=== PATIENT | female | born 1990 | race Caucasian/White ===

== ENCOUNTER 2017-06-11 17:59 | Emergency (ER) | payer OTHER ==
[2017-06-11 18:18] LABS: BILIRUBIN,URINE NEGATIVE (NEGATIVE); GLUCOSE, URINE (UA) NEGATIVE (NEGATIVE); KETONES,URINE (UA) NEGATIVE (NEGATIVE); LEUKOCYTE ESTERASE, URINE NEGATIVE (NEGATIVE); NITRITE,URINE NEGATIVE (NEGATIVE); OCCULT BLOOD,URINE SMALL (NEGATIVE); PH,URINE 6.5 PH (5.0-7.5); PROTEIN,URINE NEGATIVE (NEGATIVE); UROBILINOGEN,URINE 0.2 (NORMAL) E.U./dL (NORMAL)
[2017-06-11 18:22] LABS: CLARITY,URINE HAZY (CLEAR)
--- NOTE | 2017-06-11 18:22 | ED Physician Documentation ---
PD HPI ABD PAIN - Stated complaint Stated Complaint: FEMALE /9WKS - Chief complaint Chief Complaint: Abd Pain - History obtained from History obtained from: Patient - History of Present Illness Timing - onset: Other (G1 at approximately 9 weeks presents with slight vaginal bleeding today without cramping.) Review of Systems Ten Systems: 10 systems reviewed and negative Constitutional: reports: Reviewed and negative Throat: reports: Reviewed and negative Cardiac: reports: Reviewed and negative PD PAST MEDICAL HISTORY - Past Medical History Past Medical History: No - Past Surgical History Past Surgical History: No - Present Medications Home Medications: Ambulatory Orders Medication Instructions Recorded Confirmed No Known Home Medications [No 06/11/17 06/11/17 Known Home Medications] - Allergies Allergies/Adverse Reactions: Allergies Allergy/AdvReac Type Severity Reaction Status Date / Time No Known Drug Allergies Allergy Verified 06/11/17 18:03 - Social History Does the pt smoke?: No Smoking Status: Never smoker Does the pt drink ETOH?: No Does the pt have substance abuse?: No - Immunizations Immunizations are current?: No PD ED PE NORMAL - Vitals Vital signs reviewed: Yes - General General: Alert and oriented X 3, No acute distress - Abdomen Abdomen: Normal bowel sounds, Soft, Non tender - Female Female : Other (Pelvic ultrasound done by me demonstrates empty uterus, I do not see an IUP.) - Neuro Neuro: Alert and oriented X 3, Normal speech - Psych Psych: Normal mood, Normal affect Results - Vitals Vitals: Vital Signs - 24 hr 06/11/17 18:02 Temperature 35.0 C L Heart Rate 88 Respiratory 18 Rate Blood Pressure 103/66 O2 Saturation 98 Oxygen O2 Source Room air - Labs Labs: Laboratory Tests 06/11/17 06/11/17 06/11/17 18:09 18:21 18:21 WBC RBC Hgb Hct MCV MCH MCHC RDW Plt Count MPV Neut # Lymph # [place] # Eos # Baso # Absolute Nucleated RBC Nucleated RBC % Sodium Potassium Chloride Carbon Dioxide Anion Gap BUN Creatinine Estimated GFR (MDRD) Glucose Calcium HCG, Quant 61277.00 Urine Color YELLOW Urine Clarity HAZY Urine pH 6.5 Ur Specific [place] 1.020 Urine Protein NEGATIVE Urine Glucose (UA) NEGATIVE Urine Ketones NEGATIVE Urine Occult Blood SMALL H Urine Nitrite NEGATIVE Urine Bilirubin NEGATIVE Urine Urobilinogen 0.2 (NORMAL) Ur Leukocyte Esterase NEGATIVE Urine RBC 0-5 Urine WBC 0-3 Ur Squamous Epith Cells FEW Squamous Amorphous Sediment Marked Urine Bacteria Many H Ur Microscopic Review INDICATED Urine Culture Comments INDICATED Blood Type O POSITIVE 06/11/17 06/11/17 18:21 18:21 WBC 7.9 RBC 4.34 Hgb 13.1 Hct 36.8 L MCV 84.7 MCH 30.1 MCHC 35.6 RDW 12.5 Plt Count 251 MPV 8.4 Neut # 5.3 Lymph # 1.8 [place] # 0.7 Eos # 0.0 Baso # 0.0 Absolute Nucleated RBC 0.00 Nucleated RBC % 0.1 Sodium 136 Potassium 3.4 L Chloride 101 Carbon Dioxide 31 Anion Gap 4.0 L BUN 9 Creatinine 0.5 Estimated GFR (MDRD) 150 Glucose 89 Calcium 8.9 HCG, Quant Urine Color Urine Clarity Urine pH Ur Specific [place] Urine Protein Urine Glucose (UA) Urine Ketones Urine Occult Blood Urine Nitrite Urine Bilirubin Urine Urobilinogen Ur Leukocyte Esterase Urine RBC Urine WBC Ur Squamous Epith Cells Amorphous Sediment Urine Bacteria Ur Microscopic Review Urine Culture Comments Blood Type - Rads (name of study) Pelvic sono Radiology: EMP read contemporaneously (Empty uterus intrauterine gestational sac measuring 7 weeks 2 days by sac size, differential diagnosis includes blighted ovum, anembryonic or molar .) PD MEDICAL DECISION MAKING - ED course ED course: 26-year-old G1 presents with spotting in , I did not see an ultrasound defined IUP on bedside ultrasound and this was followed with a formal ultrasound showing similar findings despite a beta-hCG which should clearly be showing us a at this point. Patient was counseled and she will need to have follow-up beta hCG in the clinic in a few days. Case discussed in person with Dr. Rosales on-call OB who agreed with this plan. Departure - Departure Disposition: Home, Self Care Clinical Impression: Threatened in early Condition: Good Record reviewed to determine appropriate education?: Yes Instructions: ED Miscarriage Poss Comments: [place] call them tomorrow for an appointment. Let them know that your blood type was O+ and that your serum beta hCG was [id number]. Your ultrasound showed: "Empty uterus intrauterine gestational sac measuring 7 weeks 2 days by sac size , differential diagnosis includes blighted ovum, anembryonic or molar . .Return if worse
[2017-06-11 18:33] LABS: BASOPHILS % (AUTO) 0.6 %; EOSINOPHILS % (AUTO) 0.5 %; HGB - HEMOGLOBIN 13.1 g/dL (12.0-16.0); LYMPHOCYTES # (AUTO) 1.8 10^3/uL (1.5-3.5); LYMPHOCYTES % (AUTO) 23.2 %; MEAN CORPUSCULAR HEMOGLOBIN 30.1 pg (27.0-31.0); MEAN CORPUSCULAR HGB CONC 35.6 g/dL (32.0-36.0); MEAN CORPUSCULAR VOLUME 84.7 fL (81.0-99.0); MEAN PLATELET VOLUME 8.4 fL (7.9-10.8); MONOCYTES # (AUTO) 0.7 10^3/uL (0.0-1.0); MONOCYTES % (AUTO) 8.9 %; NEUTROPHILS # (AUTO) 5.3 10^3/uL (1.5-6.6); NEUTROPHILS % (AUTO) 66.8 %; PLT - PLATELET COUNT 251 10^3/uL (130-450); RED BLOOD COUNT 4.34 10^6/uL (4.20-5.40); RED CELL DISTRIBUTION WIDTH 12.5 % (12.0-15.0); WHITE BLOOD COUNT 7.9 x10^3/uL (4.8-10.8)
[2017-06-11 18:35] LABS: AMORPHOUS SEDIMENT,UR Marked /LPF; BACTERIA,URINE Many /HPF (None Seen); RBC,URINE 0-5 /HPF (0-5); SQUAMOUS EPITHELIAL CELL,UR FEW Squamous (<= Few)
[2017-06-11 18:39] LABS: CALCIUM 8.9 mg/dL (8.5-10.3); CREATININE 0.5 mg/dL (0.4-1.0)
--- NOTE | 2017-06-11 20:21 | Ultrasound Preliminary Report ---
Exam: US OB FIRST TRIMESTER IMPRESSION: 1. Empty intrauterine gestational sac with gestational age 7 weeks 2 days by gestational sac size. Di fferential diagnosis includes blighted ovum, an embryonic , or molar . Concomitant ectopic is not excluded 2. Fundal uterine mass, question intramural fibroid measuring 4.3 cm.. [facility] SITE ID: [id number]
--- NOTE | 2017-06-11 20:21 | Ultrasound Report ---
EXAM: FIRST TRIMESTER OBSTETRIC ULTRASOUND (Less than 11 weeks) EXAM DATE: 06/11/2017 07:49 PM. CLINICAL HISTORY: VB . LMP: 04/11/2017. COMPARISONS: None. TECHNIQUE: Transabdominal and transvaginal ultrasound examination with static image documentation. CLINICAL DATES: EGA 8 weeks 5 days with ARABELLA 01/16/2018 based on LMP. ASSESSMENT: Gestational Sac: Single intrauterine. Mean gestational sac diameter: 23 mm = 7 weeks 2 days. Embryo: CRL (crown-rump length) not seen. Cardiac activity: Not seen. Yolk sac: Not seen. Amniotic fluid: Not accurately assessed at this gestational age. Early placenta: Not visible at this gestational age. Other: There is a small amount of perigestational fluid.. MATERNAL STRUCTURES: Uterus: Anteverted. There is a fundal intramural mass measuring 3.7 x 4.3 x 3.6 cm, probable fibroid. . Cervix: Closed. Right Ovary/Adnexa: There is a corpus luteum versus cyst measuring 1.4 x 1.1 x 1.6 cm.. The ovary me asures 2.9 x 2.1 x 2.8 cm, volume 9.2 cc. Left Ovary/Adnexa: Unremarkable. The ovary measures 2.6 x 1.3 x 2.1 cm, volume 3.6 cc. Free Fluid: None. Other: None. IMPRESSION: 1. Empty intrauterine gestational sac with gestational age 7 weeks 2 days by gestational sac size. Di fferential diagnosis includes blighted ovum, an embryonic , or molar . Concomitant ectopic is not excluded 2. Fundal uterine mass, question intramural fibroid measuring 4.3 cm.. [facility] Referring Provider Line: [phone] SITE ID: [id number]
[2017-06-11 21:23] VITALS: BP 122/71
== END 2017-06-11 21:23 | disposition home or self-care (01) ==
LOC: ED 17:59
DX: O20.0 Threatened abortion (principal); Z3A.09 9 weeks gestation of pregnancy
CPT/HCPCS: 36415; 76801; 76817; 80048; 81001; 81003; 84702; 85025; 86900; 86901; 87086; 99283

== ENCOUNTER 2017-06-27 03:09 | Emergency (ER) | payer OTHER ==
--- NOTE | 2017-06-27 03:34 | ED Physician Documentation ---
PD HPI FEMALE - Stated complaint Stated Complaint: FEMALE - History obtained from History obtained from: Patient - History of Present Illness Timing - onset: Today Timing - details: Now resolved Associated symptoms: Pelvic pain, Vaginal bleeding Similar symptoms before: Work up / diagnostics, Treatment Recently seen: Clinic, Emergency Dept - Additional information Additional information: Patient is a 26 year old female who is presenting to the emergency department for abdominal cramping, vaginal bleeding and passing tissue. patient states that over the last 3 weeks she has had some spotting. patient was diagnosed with having and empty yoke sac and patient states that her beta hcg became smaller. patient states that tonight she passed a large amount of tissue and has filled 4 pads in the last hour. Review of Systems Constitutional: denies: Fever, Chills Eyes: reports: Reviewed and negative Ears: reports: Reviewed and negative Nose: reports: Reviewed and negative Throat: reports: Reviewed and negative Cardiac: denies: Chest pain / pressure, Palpitations Respiratory: denies: Dyspnea, Cough GI: reports: Nausea, Vomiting : reports: Vaginal bleeding. denies: Dysuria, Frequency Musculoskeletal: denies: Neck pain, Back pain, Extremity pain Neurologic: denies: Generalized weakness, Focal weakness Immunocompromised: denies: Immunocompromised PD PAST MEDICAL HISTORY - Past Surgical History Past Surgical History: No - Present Medications Home Medications: Ambulatory Orders Medication Instructions Recorded Confirmed No Known Home Medications [No 06/11/17 06/11/17 Known Home Medications] - Allergies Allergies/Adverse Reactions: Allergies Allergy/AdvReac Type Severity Reaction Status Date / Time No Known Drug Allergies Allergy Verified 06/27/17 03:24 - Social History Does the pt smoke?: No Smoking Status: Never smoker Does the pt drink ETOH?: No Does the pt have substance abuse?: No - Immunizations Immunizations are current?: No PD ED PE NORMAL - General General: Alert and oriented X 3, No acute distress - HEENT HEENT: Atraumatic, PERRL - Neck Neck: Supple, no meningeal sign - Cardiac Cardiac: RRR, No murmur - Respiratory Respiratory: No respiratory distress - Abdomen Abdomen: Soft, Non distended - Derm Derm: Normal color, Warm and dry, No rash - Extremities Extremities: No deformity, No edema - Neuro Neuro: Alert and oriented X 3, No motor deficit, No sensory deficit, Normal speech - Psych Psych: Normal mood PD ED PE EXPANDED - Abdomen Abdomen: Tender to palpation, Suprapubic Results - Vitals Vitals: Vital Signs - 24 hr 06/27/17 03:20 Temperature 36.2 C L Heart Rate 85 Respiratory 17 Rate Blood Pressure 119/65 O2 Saturation 100 Oxygen O2 Source Room air - Labs Labs: Laboratory Tests 06/27/17 06/27/17 06/27/17 03:40 03:40 03:40 WBC 9.5 RBC 4.22 Hgb 12.4 Hct 36.4 L MCV 86.2 MCH 29.4 MCHC 34.1 RDW 12.4 Plt Count 230 MPV 8.0 Neut # 6.8 H Lymph # 1.8 [place] # 0.7 Eos # 0.1 Baso # 0.1 Absolute Nucleated RBC 0.00 Nucleated RBC % 0.0 Sodium 138 Potassium 3.9 Chloride 105 Carbon Dioxide 25 Anion Gap 8.0 BUN 18 Creatinine 0.7 Estimated GFR (MDRD) 102 Glucose 110 H Calcium 9.0 HCG, Quant 3704.00 - Rads (name of study) pelvic ultrasound Radiology: Final report received (no vascularity, unlikely retained products of conception) PD MEDICAL DECISION MAKING - ED course Complexity details: reviewed old records, reviewed results, re-evaluated patient , considered differential, d/w patient ED course: Patient was seen and examined at bedside. patient was awake, alert and oriented and in no distress. labs were drawn and imaging was ordered. Patient had brought in the tissue she passed and it looked like placenta. Patient's vital signs and h/h were within normal limits. Patient's ultrasound did not look like retained products of conception. Patient was given detailed discharge and follow up instructions. patient required no further work up and was stable for discharge with outpatient follow up. Departure - Departure Disposition: Home, Self Care Clinical Impression: Miscarriage Condition: Good Instructions: ED Miscarriage Completed Follow-Up: primary,care provider [Other] - Within 3 Days Comments: Your symptoms today were caused by passing tissue from your . You will likely still bleed over the next few days but it should stop. Your beta hcg levels are decreasing appropriately. You should follow up with your ob this week for further evaluation and care. You may return to the emergency department at any time for new, worsening or uncontrollable symptoms.
[2017-06-27] MEDS ORDERED: ONDANSETRON ODT 4 MG TABLET TL STA (03:36)
[2017-06-27 03:55] LABS: BASOPHILS # (AUTO) 0.1 10^3/uL (0.0-0.1); BASOPHILS % (AUTO) 0.6 %; EOSINOPHILS # (AUTO) 0.1 10^3/uL (0.0-0.7); EOSINOPHILS % (AUTO) 0.8 %; HGB - HEMOGLOBIN 12.4 g/dL (12.0-16.0); LYMPHOCYTES # (AUTO) 1.8 10^3/uL (1.5-3.5); LYMPHOCYTES % (AUTO) 19.2 %; MEAN CORPUSCULAR HEMOGLOBIN 29.4 pg (27.0-31.0); MEAN CORPUSCULAR HGB CONC 34.1 g/dL (32.0-36.0); MEAN CORPUSCULAR VOLUME 86.2 fL (81.0-99.0); MONOCYTES # (AUTO) 0.7 10^3/uL (0.0-1.0); MONOCYTES % (AUTO) 7.6 %; NEUTROPHILS # (AUTO) 6.8 10^3/uL (1.5-6.6); NEUTROPHILS % (AUTO) 71.8 %; PLT - PLATELET COUNT 230 10^3/uL (130-450); RED BLOOD COUNT 4.22 10^6/uL (4.20-5.40); RED CELL DISTRIBUTION WIDTH 12.4 % (12.0-15.0); WHITE BLOOD COUNT 9.5 x10^3/uL (4.8-10.8)
[2017-06-27 04:01] LABS: CREATININE 0.7 mg/dL (0.4-1.0)
--- NOTE | 2017-06-27 05:16 | Ultrasound Report ---
EXAM: PELVIC ULTRASOUND EXAM DATE: 06/27/2017 04:57 AM. CLINICAL HISTORY: Miscarriage, passing tissue. COMPARISON: None. TECHNIQUE: Realtime transabdominal pelvic scan performed to identify the uterus and adnexa and as an overview of other pelvic structures, followed by transvaginal scan to provide greater detail of the u terus and adnexa, with static image documentation. FINDINGS: LMP: 04/11/2017 Uterus: Uterus is normal in position and normal in configuration. Uterus measures 9.0 x 5.6 x 4.4 cm . No evident uterine masses. Endometrium: Heterogeneous thickened endometrial stripe complex measuring 21 mm. No definite internal vascularity. Cervix: No suspicious lesion. Right Ovary: Normal in appearance measuring 3.1 x 2.2 x 2.0 cm. Normal blood flow. Left Ovary: Normal in appearance measuring 2.8 x 1.8 x 1.3 cm. Normal blood flow. Fluid: No signficant free fluid. Other: No other significant findings. IMPRESSION: Heterogeneous thickened endometrial stripe complex without increased vascularity. As a result, retain ed products of conception are felt to be less likely. This may be due to blood products within the en dometrial canal. [facility] Referring Provider Line: [phone] SITE ID: [id number]
[2017-06-27 05:35] VITALS: BP 120/64
== END 2017-06-27 05:43 | disposition home or self-care (01) ==
LOC: ED 03:09
DX: O03.9 Complete or unspecified spontaneous abortion without complication (principal)
CPT/HCPCS: 36415; 76830; 76856; 80048; 84702; 85025; 99283; 99284; Q0162; 88305

== ENCOUNTER 2018-03-31 00:02 | Emergency (ER) | payer OTHER ==
--- NOTE | 2018-03-31 00:15 | ED Physician Documentation ---
PD HPI ABD PAIN - Stated complaint Stated Complaint: ABDOMINAL PAIN,18W - History obtained from History obtained from: Patient - History of Present Illness Timing - onset: How many days ago (2-3) Timing - duration: Days (2-3) Timing - details: Gradual onset, Still present Quality: Cramping, Aching, Pain Location: Periumbilical, LLQ Radiation: Left flank Improved by: Laying still Worsened by: Moving. No: Palpation Associated symptoms: Fever (today), Nausea, Vomiting (earlier today, several times), Dysuria, Loss of appetite. No: Diarrhea, Chest pain, Near syncope / syncope Similar symptoms before: Has not had sx before Recently seen: Not recently seen Review of Systems Constitutional: reports: Fever (today) Nose: denies: Rhinorrhea / runny nose, Congestion Throat: denies: Sore throat Respiratory: denies: Cough GI: reports: Abdominal Pain, Nausea, Vomiting. denies: Diarrhea : reports: Dysuria. denies: Frequency PD PAST MEDICAL HISTORY - Past Medical History Cardiovascular: None Respiratory: None Neuro: None Endocrine/Autoimmune: None [employer]: Miscarriage(s) : Frequency - Past Surgical History Past Surgical History: No - Present Medications Home Medications: Ambulatory Orders Medication Instructions Recorded Confirmed Cephalexin [Keflex] 500 mg PO QID #24 capsule 03/31/18 Naproxen 375 mg PO BID #15 tablet 03/31/18 Ondansetron Odt [Zofran] 4 mg TL Q6H PRN #15 tablet 03/31/18 - Allergies Allergies/Adverse Reactions: Allergies Allergy/AdvReac Type Severity Reaction Status Date / Time No Known Drug Allergies Allergy Verified 03/31/18 00:18 - Social History Does the pt smoke?: No Smoking Status: Never smoker Does the pt drink ETOH?: No Does the pt have substance abuse?: No - Immunizations Immunizations are current?: No PD ED PE NORMAL - Vitals Vital signs reviewed: Yes (tachycardic with fever) - General General: Alert and oriented X 3, Well developed/nourished - HEENT HEENT: Moist mucous membranes, Pharynx benign - Neck Neck: Supple, no meningeal sign, No adenopathy - Cardiac Cardiac: No murmur. No: RRR (tachy but regular) - Respiratory Respiratory: Clear bilaterally - Abdomen Abdomen: Normal bowel sounds, Soft, Non tender, Non distended, Other (gravid with fundus just below umbilicus. Bedside U/S showing normal IUP with heart rate and movement. Left kidney U/S showing normal size. ) Results - Vitals Vitals: Vital Signs - 24 hr 03/31/18 03/31/18 03/31/18 00:16 00:22 00:23 Temperature 39.1 C H Heart Rate 149 H 130 H Respiratory 18 17 Rate Blood Pressure 108/61 111/61 O2 Saturation 96 96 03/31/18 03/31/18 01:59 02:32 Temperature Heart Rate 100 100 Respiratory 16 16 Rate Blood Pressure 110/54 L 98/54 L O2 Saturation 99 96 Oxygen O2 Source Room air - Labs Labs: Laboratory Tests 03/31/18 03/31/18 03/31/18 00:10 01:10 01:10 WBC 14.4 H RBC 3.28 L Hgb 10.0 L Hct 27.9 L MCV 85.0 MCH 30.5 MCHC 35.9 RDW 13.7 Plt Count 195 MPV 8.3 Neut # (Auto) 12.9 H Lymph # (Auto) 0.3 L [place] # (Auto) 1.2 H Eos # (Auto) 0.0 Baso # (Auto) 0.0 Absolute Nucleated RBC 0.00 Nucleated RBC % 0.0 Sodium 130 L Potassium 2.9 L Chloride 101 Carbon Dioxide 20 L Anion Gap 9.0 BUN 7 Creatinine 0.5 Estimated GFR (MDRD) 149 Glucose 115 H Calcium 8.3 L Total Bilirubin 0.9 AST 20 ALT 14 Alkaline Phosphatase 41 L Total Protein 6.1 L Albumin 2.9 L Globulin 3.2 Albumin/Globulin Ratio 0.9 L Lipase 33 Urine Color YELLOW Urine Clarity CLEAR Urine pH 6.0 Ur Specific [place] 1.025 Urine Protein TRACE Urine Glucose (UA) 100 H Urine Ketones NEGATIVE Urine Occult Blood TRACE-LYSE Urine Nitrite POSITIVE H Urine Bilirubin NEGATIVE Urine Urobilinogen 0.2 (NORMAL) Ur Leukocyte Esterase SMALL H Urine RBC 0-5 Urine WBC >25 H Ur Squamous Epith Cells RARE Squamous Urine Bacteria Moderate H Ur Microscopic Review INDICATED Urine Culture Comments INDICATED PD MEDICAL DECISION MAKING - ED course Complexity details: re-evaluated patient (she is feeling better with fluids and meds. Vitals are improved. ), considered differential, d/w patient Departure - Departure Disposition: 01 Home, Self Care Clinical Impression: UTI (urinary tract infection) Qualifiers: Urinary tract infection type: acute pyelonephritis Qualified Code(s): N10 - Acute pyelonephritis Qualifiers: Weeks of gestation: 18 weeks Qualified Code(s): Z3A.18 - 18 weeks gestation of Condition: Stable Record reviewed to determine appropriate education?: Yes Instructions: ED Kidney Infec Female Prescriptions: Cephalexin [Keflex] 500 mg PO QID #24 capsule Naproxen 375 mg PO BID #15 tablet Ondansetron Odt [Zofran] 4 mg TL Q6H PRN #15 tablet PRN Reason: Nausea / Vomiting Comments: You do have a urinary tract infection and it sounds like in the kidney given your symptoms. Drink lots of fluids. Naproxen twice daily for a week for inflammation and pain. Ondansetron if needed for nausea. Cephalexin antibiotic for the infection. Add Tylenol every 4-6 hours if needed for pain and fever. Recheck if not improving over the next 2-3 days and return sooner if worse. Follow-up with your [facility] early next week, call for an appointment. Discharge Date/Time: 03/31/18 02:35
[2018-03-31 00:23] LABS: BILIRUBIN,URINE NEGATIVE (NEGATIVE); GLUCOSE, URINE (UA) 100 mg/dL (NEGATIVE); KETONES,URINE (UA) NEGATIVE (NEGATIVE); LEUKOCYTE ESTERASE, URINE SMALL (NEGATIVE); NITRITE,URINE POSITIVE (NEGATIVE); OCCULT BLOOD,URINE TRACE-LYSE (NEGATIVE); PROTEIN,URINE TRACE mg/dL (NEGATIVE); UROBILINOGEN,URINE 0.2 (NORMAL) E.U./dL (NORMAL)
[2018-03-31 00:24] LABS: CLARITY,URINE CLEAR (CLEAR)
[2018-03-31 00:35] LABS: BACTERIA,URINE Moderate /HPF (None Seen); RBC,URINE 0-5 /HPF (0-5); SQUAMOUS EPITHELIAL CELL,UR RARE Squamous (<= Few)
[2018-03-31] MEDS ORDERED: ONDANSETRON 4 MG/2 ML VIAL IVP STA (00:42)
[2018-03-31] MEDS ORDERED: SODIUM CHLORIDE 0.9% 1,000 ML IV ONE (00:42)
[2018-03-31] MEDS ORDERED: cefTRIAXone 1 GM VIAL IVP STA (00:43)
[2018-03-31] MEDS ORDERED: KETOROLAC 15 MG/ML VIAL IVP STA (00:43)
[2018-03-31 01:54] LABS: BASOPHILS % (AUTO) 0.1 %; LYMPHOCYTES # (AUTO) 0.3 10^3/uL (1.5-3.5); LYMPHOCYTES % (AUTO) 2.1 %; MEAN CORPUSCULAR HEMOGLOBIN 30.5 pg (27.0-31.0); MEAN CORPUSCULAR HGB CONC 35.9 g/dL (32.0-36.0); MEAN PLATELET VOLUME 8.3 fL (7.9-10.8); MONOCYTES # (AUTO) 1.2 10^3/uL (0.0-1.0); MONOCYTES % (AUTO) 8.2 %; NEUTROPHILS # (AUTO) 12.9 10^3/uL (1.5-6.6); NEUTROPHILS % (AUTO) 89.6 %; PLT - PLATELET COUNT 195 10^3/uL (130-450); RED BLOOD COUNT 3.28 10^6/uL (4.20-5.40); RED CELL DISTRIBUTION WIDTH 13.7 % (12.0-15.0); WHITE BLOOD COUNT 14.4 x10^3/uL (4.8-10.8)
[2018-03-31 01:55] LABS: ALBUMIN 2.9 g/dL (3.2-5.5); ALBUMIN/GLOBULIN RATIO 0.9 (1.0-2.2); BILIRUBIN,TOTAL 0.9 mg/dL (0.2-1.0); CALCIUM 8.3 mg/dL (8.5-10.3); CREATININE 0.5 mg/dL (0.4-1.0); TOTAL PROTEIN 6.1 g/dL (6.7-8.2)
[2018-03-31 02:34] VITALS: BP 98/54
== END 2018-03-31 02:35 | disposition home or self-care (01) ==
LOC: ED 00:02
DX: O23.02 Infections of kidney in pregnancy, second trimester (principal); Z3A.18 18 weeks gestation of pregnancy
CPT/HCPCS: 36415; 80053; 81001; 81003; 83690; 85025; 87086; 87181; 96361; 96374; 96375; 99283; 99284

== ENCOUNTER 2020-04-15 00:32 | Outpatient (CLI) | payer OTHER ==
[2020-04-15 01:02] VITALS: BP 108/64
[2020-04-15 01:23] LABS: BILIRUBIN,URINE NEGATIVE (NEGATIVE); GLUCOSE, URINE (UA) NEGATIVE (NEGATIVE); KETONES,URINE (UA) NEGATIVE (NEGATIVE); LEUKOCYTE ESTERASE, URINE NEGATIVE (NEGATIVE); NITRITE,URINE NEGATIVE (NEGATIVE); OCCULT BLOOD,URINE NEGATIVE (NEGATIVE); PROTEIN,URINE NEGATIVE (NEGATIVE); UROBILINOGEN,URINE 0.2 (NORMAL) E.U./dL (NORMAL)
[2020-04-15 01:25] LABS: CLARITY,URINE CLEAR (CLEAR)
[2020-04-15 01:29] LABS: BACTERIA,URINE Rare /HPF (None Seen); RBC,URINE 0-5 /HPF (0-5); SQUAMOUS EPITHELIAL CELL,UR FEW Squamous (<= Few)
== END 2020-04-15 01:45 | disposition home or self-care (01) ==
LOC: WFO 00:32 → FBP 00:34 → WFO 01:45
PROVIDERS: ATTEND Obstetrics & Gynecology
DX: O99.891 Other specified diseases and conditions complicating pregnancy (principal); R10.9 Unspecified abdominal pain; Z3A.00 Weeks of gestation of pregnancy not specified
CPT/HCPCS: 81001; 87086; 99213

== ENCOUNTER 2020-06-11 08:38 | Outpatient (CLI) | payer OTHER | END 2020-06-11 08:39 | disposition home or self-care (01) | LOC: LAB 08:38 | PROVIDERS: ATTEND Obstetrics & Gynecology | DX: O99.810 Abnormal glucose complicating pregnancy (principal) | CPT/HCPCS: 36415; 82951; 82952 ==

== ENCOUNTER 2020-06-23 08:00 | Outpatient (CLI) | payer OTHER | END 2020-06-23 23:59 | disposition home or self-care (01) | LOC: LAB.R 08:00 | PROVIDERS: ATTEND Obstetrics & Gynecology | DX: Z36.85 Encounter for antenatal screening for Streptococcus B (principal) | CPT/HCPCS: 87797 ==

== ENCOUNTER 2020-06-28 07:09 | Outpatient (CLI) | payer OTHER ==
--- NOTE | 2020-06-28 15:01 | Ultrasound Report ---
PROCEDURE: OB F/U or Repeat INDICATIONS: GESTATIONAL DIABETES OUTSIDE/PRIOR DATING DATA: Last menstrual period (LMP): 10/12/2019. LMP-based estimated date of delivery (ARABELLA): 07/18/2020. First dating scan (date and location): 03/04/2020 at [facility]. Estimated date of delivery (ARABELLA) from first dating scan: TECHNIQUE: Real-time scanning was performed of the fetus, with image documentation and biometric measurements. COMPARISON: None. FINDINGS: General: A single living intrauterine gestation is present. Presentation: Cephalic Placenta: Placental position is anterior, without previa. Amniotic fluid index: 17.6 cm, 73.5 for gestational age. heart rate: 123 beats per minute. Maternal cervical canal: 3.2 cm long; normal length is 2.5 cm or more. biometrics: Biparietal diameter: 9.3, 37 weeks 6 days Head circumference: 33.0, 37 weeks 3 days Abdominal circumference: 34.4, 38 weeks 2 days Femur length: 7.0, 35 weeks 6 days Estimated gestational age from initial scan: 37 weeks 1 day Composite gestational age from present scan: 37 weeks 0 days Estimated weight and percentile: 3247, 69% Measurement variability in biometric dating: +/- 10 days from 12-20 weeks gestation, +/- 2 weeks from 20-30 weeks gestation, +/- 3 weeks at 30 weeks gestation or more. Other: CORD Dopplers were noted. There is persistent anterior diastolic flow. The S/D ratios ra nge between 2.22 and 2.31 and resistive indices range between 0.55 and 0.57. Images of the facial profile as well as the kidneys, and diaphragm are within normal limits. IMPRESSION: Single intrauterine in cephalic position with heart rate of 123 bpm. Estimated gestat ional age on today's examination corresponds to 37 weeks 0 days. Estimated weight of 3247g corresponding to the 69th percentile. INES measures 17.6 cm. Umbilical cord Dopplers with S/D ratios between 2.22 and 2.31 and resistive indices between 0.55 and 0.57. Reviewed by: Braxton Soler DO on 06/28/2020 2:00 PM SAM Approved by: Braxton Soler DO on 06/28/2020 2:00 PM [facility] Station ID: [id number]
== END 2020-06-28 07:10 | disposition home or self-care (01) ==
LOC: DI 07:09
PROVIDERS: ATTEND Obstetrics & Gynecology
DX: O24.419 Gestational diabetes mellitus in pregnancy, unspecified control (principal); Z3A.37 37 weeks gestation of pregnancy

== ENCOUNTER 2020-06-28 08:01 | Outpatient (CLI) | payer OTHER ==
[2020-06-28 08:16] VITALS: BP 123/76
--- NOTE | 2020-07-01 13:44 | PROCEDURE REPORT ---
- HPI Diagnosis/Indication for NST: Gestational Diabetes Current EDU 07/18/20 Gestation 37 Weeks and 1 Days 3 Para 1 Vital Signs Temperature 97.7 F 06/28/20 08:13 Heart Rate 79 06/28/20 08:13 Respiratory Rate 17 06/28/20 08:13 Blood Pressure 123/76 06/28/20 08:13 O2 Saturation 100 06/28/20 08:13 Temperature 97.7 F 06/28/20 08:13 Heart Rate 79 06/28/20 08:13 Respiratory Rate 17 06/28/20 08:13 Blood Pressure 123/76 06/28/20 08:13 O2 Saturation 100 06/28/20 08:13 - NST Procedure NST Procedure Start Date 06/28/20 Start Time 08:12 Stop Time 08:48 Vibroacoustic Stimulation Used No Patient States Movement Yes EFM 115 mod nishi 15x15 accels no decels TOCO: q7 min, mild - Results and Plan Findings/Impression: 29 yo at 37+1 wga and GDM here for NST Cat I tracing Cont with twice weekyl NST and weekly INES DX: Gestational diabetes
== END 2020-06-28 08:55 | disposition home or self-care (01) ==
LOC: WFO 08:01 → FBP 08:07 → WFO 08:55
PROVIDERS: ATTEND Obstetrics & Gynecology
DX: O24.419 Gestational diabetes mellitus in pregnancy, unspecified control (principal); Z3A.37 37 weeks gestation of pregnancy
CPT/HCPCS: 59025

== ENCOUNTER 2020-07-01 07:26 | Outpatient (CLI) | payer OTHER ==
--- NOTE | 2020-07-01 13:37 | Ultrasound Report ---
PROCEDURE: OB Limited INDICATIONS: GESTATIONAL DIABETES OUTSIDE/PRIOR DATING DATA: Last menstrual period (LMP): 10/12/2019. LMP-based estimated date of delivery (ARABELLA): 07/18/2020. First dating scan (date and location): OB ultrasound 03/04/20. Estimated date of delivery (ARABELLA) from first dating scan: 07/18/2020. It is noted ARABELLA given by provider is 07/18/2020.. TECHNIQUE: Real-time scanning was performed of the fetus, with image documentation. COMPARISON: OB ultrasound 06/28/2019, 03/04/2020 FINDINGS: A single living intrauterine gestation is present. Presentation: Cephalic Placenta: Placental position is anterior, without previa. Amniotic fluid index: 16.1 cm, 66th percentile for gestational age. 6.6 cm heart rate: 123 beats per minutes. Maternal cervical canal: 3.8 cm long; normal length is 2.5 cm or more. Estimated gestational age from initial scan: 37 weeks 4 days IMPRESSION: 1. Single live intrauterine with INES measuring 66th percentile. Reviewed by: Angi Gonzalez MD on 07/01/2020 1:35 PM PST Approved by: Angi Gonzalez MD on 07/01/2020 1:35 PM PST Station ID: [id number]
== END 2020-07-01 07:27 | disposition home or self-care (01) ==
LOC: DI 07:26
PROVIDERS: ATTEND Obstetrics & Gynecology
DX: O24.419 Gestational diabetes mellitus in pregnancy, unspecified control (principal); Z3A.37 37 weeks gestation of pregnancy

== ENCOUNTER 2020-07-01 07:53 | Outpatient (CLI) | payer OTHER ==
[2020-07-01 08:04] VITALS: BP 109/65
--- NOTE | 2020-07-01 14:10 | PROCEDURE REPORT ---
- HPI Diagnosis/Indication for NST: Gestational Diabetes Current EDU 07/18/20 Gestation 37 Weeks and 4 Days 3 Para 1 Vital Signs Temperature 97.7 F 07/01/20 08:02 Heart Rate 73 07/01/20 08:02 Respiratory Rate 18 07/01/20 08:02 Blood Pressure 109/65 07/01/20 08:02 O2 Saturation 96 07/01/20 08:02 Temperature 97.6 F L 07/01/20 08:47 Heart Rate 74 07/01/20 08:47 Respiratory Rate 16 07/01/20 08:47 Blood Pressure 109/65 07/01/20 08:47 O2 Saturation 100 07/01/20 08:47 - NST Procedure NST Procedure Start Date 07/01/20 Start Time 08:00 Stop Time 08:39 Vibroacoustic Stimulation Used No Patient States Movement Yes EFM 120 mod nishi 15x15 accels no decels TOCO Q5-6 min, mild - Results and Plan Findings/Impression: 29 yo at 37+4 wga with GDM Cat I tracing Cont with twice weekly NST and weekly INES IOL at 39 weeks DX; gestational diabetes
== END 2020-07-01 08:40 | disposition home or self-care (01) ==
LOC: WFO 07:53 → FBP 07:59 → WFO 08:40
PROVIDERS: ATTEND Obstetrics & Gynecology
DX: O24.419 Gestational diabetes mellitus in pregnancy, unspecified control (principal); Z3A.37 37 weeks gestation of pregnancy
CPT/HCPCS: 59025

== ENCOUNTER 2020-07-04 08:06 | Outpatient (CLI) | payer OTHER ==
[2020-07-04 08:25] VITALS: BP 122/73
--- NOTE | 2020-07-04 10:41 | PROCEDURE REPORT ---
- HPI Diagnosis/Indication for NST: Gestational Diabetes Current EDU 07/18/20 Gestation 38 Weeks and 0 Days 2 Para 1 Vital Signs Temperature 36.6 C 07/04/20 08:23 Heart Rate 83 07/04/20 08:23 Respiratory Rate 20 07/04/20 08:23 Blood Pressure 122/73 07/04/20 08:23 O2 Saturation 98 07/04/20 08:23 Temperature 36.6 C 07/04/20 08:23 Heart Rate 83 07/04/20 08:23 Respiratory Rate 20 07/04/20 08:23 Blood Pressure 122/73 07/04/20 08:23 O2 Saturation 98 07/04/20 08:23 - NST Procedure NST Procedure Start Date 07/04/20 Start Time 08:16 Stop Time 08:39 Vibroacoustic Stimulation Used No Patient States Movement Yes - Results and Plan Findings/Impression: REACTIVE NST Plan: CONTINUE ANTINATAL TESTING
== END 2020-07-04 08:40 | disposition home or self-care (01) ==
LOC: WFO 08:06 → FBP 08:10 → WFO 08:40
PROVIDERS: ATTEND Obstetrics & Gynecology
DX: O24.419 Gestational diabetes mellitus in pregnancy, unspecified control (principal); Z3A.38 38 weeks gestation of pregnancy
CPT/HCPCS: 59025

== ENCOUNTER 2020-07-08 07:20 | Outpatient (CLI) | payer OTHER ==
--- NOTE | 2020-07-08 15:52 | Ultrasound Report ---
PROCEDURE: OB Limited INDICATIONS: GESTATIONAL DIABETES OUTSIDE/PRIOR DATING DATA: Last menstrual period (LMP): 10/12/2019. LMP-based estimated date of delivery (ARABELLA): 07/18/2020. First dating scan (date and location): 03/04/2020. Estimated date of delivery (ARABELLA) from first dating scan: 07/18/2020 TECHNIQUE: Real-time scanning was performed of the fetus, with image documentation. COMPARISON: OB ultrasound 03/04/2020, 03/13/2020, 06/28/2020, 07/01/1930 FINDINGS: A single living intrauterine gestation is present. Presentation: Vertex Placenta: Placental position is anterior, without previa. Amniotic fluid index: 50.2 cm cm, 64th percentile for gestational age. Largest pocket 0.6 cm heart rate: 120 beats per minutes. Maternal cervical canal: Not evaluated Estimated gestational age from initial scan: 38 weeks 4 days. IMPRESSION: 1. INES measures 15.2 cm, 64th percentile compared to 66th percentile on 07/01/2020. Reviewed by: Angi Gonzalez MD on 07/08/2020 3:51 PM PST Approved by: Angi Gonzalez MD on 07/08/2020 3:51 PM PST Station ID: [id number]
== END 2020-07-08 07:21 | disposition home or self-care (01) ==
LOC: DI 07:20
PROVIDERS: ATTEND Obstetrics & Gynecology
DX: O24.419 Gestational diabetes mellitus in pregnancy, unspecified control (principal); Z3A.38 38 weeks gestation of pregnancy

== ENCOUNTER 2020-07-08 07:47 | Outpatient (CLI) | payer OTHER ==
[2020-07-08 08:04] VITALS: BP 105/74
--- NOTE | 2020-07-08 09:36 | PROCEDURE REPORT ---
- HPI Diagnosis/Indication for NST: Gestational Diabetes Current EDU 07/18/20 Gestation 38 Weeks and 4 Days 3 Para 1 Vital Signs Temperature 36.3 C L 07/08/20 08:01 Heart Rate 79 07/08/20 08:01 Respiratory Rate 16 07/08/20 08:01 Blood Pressure 105/74 07/08/20 08:01 O2 Saturation 99 07/08/20 08:01 Temperature 36.3 C L 07/08/20 08:01 Heart Rate 79 07/08/20 08:01 Respiratory Rate 16 07/08/20 08:01 Blood Pressure 105/74 07/08/20 08:01 O2 Saturation 99 07/08/20 08:01 - NST Procedure NST Procedure Start Date 07/08/20 Start Time 07:56 Stop Time 08:03 Vibroacoustic Stimulation Used No Patient States Movement Yes - Results and Plan Findings/Impression: REACTIVE NST Plan: CONTINUE ANTINATAL TESTING. PLANNED INDUCTION MONDAY.
== END 2020-07-08 08:35 | disposition home or self-care (01) ==
LOC: WFO 07:47 → FBP 07:55 → WFO 08:41
PROVIDERS: ATTEND Obstetrics & Gynecology
DX: O24.419 Gestational diabetes mellitus in pregnancy, unspecified control (principal); Z3A.38 38 weeks gestation of pregnancy
CPT/HCPCS: 59025

== ENCOUNTER 2020-07-13 14:36 | Inpatient (IN) | payer OTHER ==
[2020-07-13] MEDS: miSOPROStoL 100 MCG TABLET BC SCH ×2 (15:39→19:49)
[2020-07-13] MEDS ORDERED: miSOPROStoL 200 MCG TABLET BC PRN (16:30)
[2020-07-13] MEDS ORDERED: ACETAMINOPHEN 325 MG TABLET PO PRN (16:30)
[2020-07-13] MEDS ORDERED: fentaNYL 100 MCG/2 ML VIAL IVP PRN (16:30)
[2020-07-13] MEDS ORDERED: TRANEXAMIC ACID IN NACL 1,000 MG/100 ML BAG IV PRN (16:30)
[2020-07-13] MEDS ORDERED: ONDANSETRON 4 MG/2 ML VIAL IVP PRN (16:30)
[2020-07-13] MEDS ORDERED: TERBUTALINE 1 MG/ML VIAL SUBQ PRN (16:30)
[2020-07-13] MEDS ORDERED: OXYTOCIN 10 UNIT/ML VIAL IM PRN (16:30)
[2020-07-13] MEDS ORDERED: LIDOCAINE-MPF 1% 30 ML VIAL ID PRN (16:30)
[2020-07-13] MEDS ORDERED: CARBOPROST TROMETHAMINE 250 MCG/ML AMP IM PRN (16:30)
[2020-07-13] MEDS ORDERED: OXYTOCIN/SODIUM CHLORIDE 500 ML IV PRN ×2 (16:30)
[2020-07-13] MEDS ORDERED: SODIUM CHLORIDE FLUSH 0.9% 10 ML SYRINGE IVP PRN (16:30)
[2020-07-13] MEDS ORDERED: METHYLERGONOVINE 0.2 MG/ML VIAL IM PRN (16:30)
[2020-07-13 16:42] LABS: BASOPHILS % (AUTO) 0.1 %; EOSINOPHILS % (AUTO) 0.1 %; HGB - HEMOGLOBIN 11.4 g/dL (12.0-16.0); MEAN CORPUSCULAR HEMOGLOBIN 29.7 pg (27.0-31.0); MEAN CORPUSCULAR HGB CONC 33.9 g/dL (32.0-36.0); MEAN CORPUSCULAR VOLUME 87.5 fL (81.0-99.0); MEAN PLATELET VOLUME 10.9 fL (7.9-10.8); MONOCYTES # (AUTO) 0.5 10^3/uL (0.0-1.0); MONOCYTES % (AUTO) 7.4 %; NEUTROPHILS # (AUTO) 5.5 10^3/uL (1.5-6.6); NEUTROPHILS % (AUTO) 78.1 %; PLT - PLATELET COUNT 208 10^3/uL (130-450); RED BLOOD COUNT 3.84 10^6/uL (4.20-5.40); RED CELL DISTRIBUTION WIDTH 15.5 % (12.0-15.0); WHITE BLOOD COUNT 7.1 x10^3/uL (4.8-10.8)
[2020-07-13] MEDS ORDERED: SODIUM CHLORIDE FLUSH 0.9% 10 ML SYRINGE IVP SCH (17:00)
[2020-07-13] MEDS: LACTATED RINGERS 1,000 ML IV PRN (23:25)
[2020-07-14] MEDS: FAMOTIDINE 20 MG TABLET PO SCH ×2 (00:12→08:49)
[2020-07-14] MEDS ORDERED: ROPIVACAINE 0.2% PF 10 ML VIAL ONE (02:30)
[2020-07-14] MEDS ORDERED: fentaNYL 100 MCG/2 ML VIAL ONE (02:30)
[2020-07-14] MEDS ORDERED: ROPIVACAINE 0.2% 200 MG/100 ML BAG EP ONE (02:31)
[2020-07-14] MEDS ORDERED: ePHEDrine 50 MG/ML VIAL IVP PRN (02:58)
[2020-07-14] MEDS ORDERED: diphenhydrAMINE INJ 50 MG/ML VIAL IVP PRN (02:58)
[2020-07-14] MEDS ORDERED: METOCLOPRAMIDE 10 MG/2 ML VIAL IVP PRN (02:58)
[2020-07-14] MEDS ORDERED: ONDANSETRON 4 MG/2 ML VIAL IVP PRN (02:58)
[2020-07-14] MEDS ORDERED: NALBUPHINE 10 MG/ML AMP IVP PRN (02:58)
[2020-07-14] MEDS ORDERED: ROPIVACAINE 0.2% 200 MG/100 ML BAG EP PRN (02:58)
[2020-07-14] MEDS ORDERED: NALOXONE 0.4 MG/ML VIAL IVP PRN (02:58)
--- NOTE | 2020-07-14 02:58 | ANESTHESIA ---
Pre-Anesthesia VS, & Labs - Diagnosis active labor - Procedure labor epidural placement Vital Signs: Temp Pulse Resp BP Pulse Ox 36.8 C 86 20 107/68 07/13/20 15:06 07/13/20 15:06 07/13/20 15:06 07/13/20 15:06 Height: 5 ft 6 in Weight (kg): 87.997 kg Body Mass Index: 31.3 BMI Classification: Obese - Is Patient ?: Yes - Lab Results Current Lab Results: Laboratory Tests 07/13/20 15:15: WBC 7.1, RBC 3.84 L, Hgb 11.4 L, Hct 33.6 L, MCV 87.5, MCH 29.7, MCHC 33.9, RDW 15.5 H, Plt Count 208, MPV 10.9 H, Neut # (Auto) 5.5, Lymph # (Auto) 1.0 L, [place] # (Auto) 0.5, Eos # (Auto) 0.0, Baso # (Auto) 0.0, Absolute Nucleated RBC 0.00, Nucleated RBC % 0.0 07/13/20 15:15: Blood Type O POSITIVE, Antibody Screen NEGATIVE Lab results reviewed: Yes Fish Bones: 07/13/20 15:15 Home Medications and Allergies Active Medications Acetaminophen (Acetaminophen 325 Mg Tablet) 650 mg PO Q6H PRN PRN Reason: pain Carboprost Tromethamine (Carboprost Tromethamine 250 Mcg/Ml Amp) 250 mcg IM Q15M PRN PRN Reason: Step 4: Hemorrhage protocol Stop: 07/18/20 16:31 Famotidine (Famotidine 20 Mg Tablet) 20 mg PO BID MC Last Admin: 07/14/20 00:12 Dose: Not Given Documented by: Fentanyl (Fentanyl 100 Mcg/2 Ml Vial) 50 mcg IVP Q1H PRN PRN Reason: PAIN Hydroxyzine Pamoate (Hydroxyzine Pamoate 25 Mg Capsule) 25 mg PO Q6H PRN PRN Reason: Anxiety Lactated Ringer's (Lr) 1,000 mls @ 75 mls/hr IV .[id number] PRN PRN Reason: pitocin use Last Admin: 07/13/20 23:25 Dose: 250 mls/hr Documented by: Oxytocin/Sodium Chloride (Pitocin/Sodium Chloride) 500 mls @ 999 mls/hr IV PRN PRN; Protocol PRN Reason: POST- HEMORR PREVENTION Stop: 07/18/20 16:31 Tranexamic Acid (Tranexamic 1,000 Mg/100ml-Nacl) 1,000 mg in 100 mls @ 600 mls/hr IV .ONCE PRN PRN Reason: EBL >1200mL and within 3hr Stop: 07/18/20 16:31 Oxytocin/Sodium Chloride (Pitocin/Sodium Chloride) 500 mls @ 1 mls/hr IV TITR PRN; Protocol PRN Reason: MD order Last Titration: 07/14/20 02:02 Dose: 0.5 milliunit/min, 0.5 mls/hr Documented by: Lidocaine HCl (Lidocaine-Mpf 1% 30 Ml Vial) 30 ml ID .ONCE PRN PRN Reason: PERINEAL REPAIR Stop: 07/18/20 16:31 Methylergonovine Maleate (Methylergonovine 0.2 Mg/Ml Vial) 0.2 mg IM .ONCE PRN PRN Reason: Step 2: Hemorrhage protocol Stop: 07/18/20 16:31 Misoprostol (Misoprostol 200 Mcg Tablet) 800 mcg BC .ONCE PRN PRN Reason: Step 3: Hemorrhage protocol Stop: 07/18/20 16:31 Ondansetron HCl (Ondansetron 4 Mg/2 Ml Vial) 4 mg IVP Q4H PRN PRN Reason: Nausea / Vomiting Oxytocin (Oxytocin 10 Unit/Ml Vial) 10 unit IM .ONCE PRN PRN Reason: Step one: If no IV access Stop: 07/18/20 16:31 Sertraline HCl (Sertraline 50 Mg Tablet) 150 mg PO DAILY MC Sodium Chloride (Sodium Chloride Flush 0.9% 10 Ml Syringe) 10 ml IVP PRN PRN PRN Reason: NEEDED PER PROVIDER ORDERS Sodium Chloride (Sodium Chloride Flush 0.9% 10 Ml Syringe) 10 ml IVP 0100,0900,1700 MC Terbutaline Sulfate (Terbutaline 1 Mg/Ml Vial) 0.25 mg SUBQ Q1H PRN PRN Reason: category 3 Allergies/Adverse Reactions: Allergies Allergy/AdvReac Type Severity Reaction Status Date / Time No Known Drug Allergies Allergy Verified 03/31/18 00:18 Anes History & Medical History - Anesthetic History Anesthesia Complications: reports: No previous complications Family history of Anesthesia Complications: Denies Family history of Malignant Hyperthermia: Denies - Medical History Cardiovascular: reports: None Pulmonary: reports: None Urinary: reports: Frequency Neuro: reports: None Musculoskeletal: reports: Scoliosis Endocrine/Autoimmune: reports: None Smoking Status: Never smoker Exam General: Alert, Oriented x3, Cooperative, No acute distress Dental: WNL Mouth Openin Fingerbreadth Neck Mobility: Normal Mallampati classification: II Plan Anesthesia Type: Epidural Consent for Procedure(s) Verified and Reviewed: Yes Code Status: Attempt Resuscitation ASA classification: 2-Mild systemic disease Is this case an emergency?: No
--- NOTE | 2020-07-14 03:04 | ANESTHESIA PROCEDURE NOTE ---
Anesthesia Epidural Template - Patient Report Patient Reports: positive: Pain controlled - Side Effects : - Plan Plan: positive: Continue current management - Other Comments Other Comments: Called for labor epidural. Patient previously spoke with. Consent obtained. Epidural placed in sterile fashion, dural puncture technique with 25 ga Lulu. DAVID at 7.5 cm, catheter at 14 cm at skin. Catheter secured and dressed with tegaderm and tape. Patient comfortable with 1/10 pain(6/10 pain prior to epidural placement)
[2020-07-14] MEDS: LACTATED RINGERS 1,000 ML IV PRN (03:25)
[2020-07-14] MEDS: hydrOXYzine PAMOATE 25 MG CAPSULE PO PRN ×2 (03:50→20:27)
[2020-07-14] MEDS ORDERED: SERTRALINE 50 MG TABLET PO SCH (09:00)
--- NOTE | 2020-07-14 10:01 | PROVIDER PROGRESS NOTE ---
Labor Progress Note - Labor Progress Note Labor Progress Note/Additional Text: S: got some naps in. Not feeling any pain with her epidural. No new complaints. O: AVSS Category 1 tracing [place] q2min SVE 4cm with RN A/P: 29yo P1 in 39th week with IOL for gest diabetes A2. IOL progressing nicely on 5mU/min of pitocin. GBS neg. Continue pitocin and anticipate .
--- NOTE | 2020-07-14 12:33 | HISTORY & PHYSICAL EXAMINATION ---
Admit History - Smoking Status: Never smoker - Other Maternal History Other Maternal History: CC: IOL HPI: Here for IOL due to A2 GDM. ROS: no fevers, vaginal bleeding, leaking of flujid, or decreased movement. Has been feeling a handful of contractions per hour. 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 No t/e/d. Meds: Sertraline 150mg daily, pepcid 20mg bid, metformin 500mg po qam, PNV FH: no genetic problems OB: , last baby was term, 8lbs 8oz, uncomplicated and delivery. LMP unknown. US on 01/01/2020 at 11 w 4 d gives ARABELLA of 07/18/2020. O positive/rubella immune. Quad within normal limits. FAS anterior placenta, EFW 50 percentile, three vessel cord, within normal limits. Influenza complete TdaP complete. Glucola 190. -Three hour oral glucose tolerance test completed. FBG 95 with one other elevated level HSV denies. GBS neg 06/23/20 Cervical cancer screening/Pap in 18 months. MOD: Anticipate . IOL at 39 week Vertex by BSUS Breast pump Rx: Declined. Meds/Allgy - Home Medications Home Medications: Ambulatory Orders Medication Instructions Recorded Confirmed Naproxen 375 mg PO BID #15 tablet 03/31/18 Ondansetron Odt [Zofran] 4 mg TL Q6H PRN #15 tablet 03/31/18 cephALEXin [Keflex] 500 mg PO QID #24 capsule 03/31/18 - Allergies Allergies/Adverse Reactions: Allergies Allergy/AdvReac Type Severity Reaction Status Date / Time No Known Drug Allergies Allergy Verified 03/31/18 00:18 Physical - Abdominal Exam Vital Signs: Temp Pulse Resp BP Pulse Ox 98.2 F 86 20 107/68 07/13/20 15:06 07/13/20 15:06 07/13/20 15:06 07/13/20 15:06 - Other Notes Labor Progress Note/Additional Text: Alert, smiling, NAD Abd soft, nt/nd EFW 8.5# Vertex and LOP by ultrasound SVE closed Category 1 NST Plan for Labor - Plan For Labor I expect patient to be DC'd or transferred within 96 hours.: Yes Plan for Labor: 29yo at 39w2d by 11w US here for IOL due to A2GDM. --Fetus: normal anatomy scan, normal quad screen, normal anatomy scan, vertex, last EFW 69%ile on 06/28/20, EFW 8.5# by ana, reassuring surveillance --IOL: not ripe, plan to start with misoprostol and then transition to pitocin PRN. GBS neg. Anticipate . --Depression/anx: continue sertraline, watch for PP flares --GERD: continue pepcid scheduled --A2GDM: will not follow sugars with the energetic requirements of labor. Diabetic diet. --: Rh+, RI, s/p Tdap and flu shots.
--- NOTE | 2020-07-14 13:36 | PROVIDER PROGRESS NOTE ---
Subjective - Subjective Subjective: More pain, epidural re-bolused, SVE 5-6/100/-1.5. AROM clear after verbal consent. Anticipate . Objective - Vital Signs/Intake & Output Intake & Output: Intake & Output 07/11/20 07/12/20 07/13/20 07/14/20 23:59 23:59 23:59 23:59 Intake Total 1246.900 Output Total 260 Balance 986.900 - Lab Results Fish Bones: 07/13/20 15:15 Other Labs: Lab Results x24hrs 07/14/20 07/13/20 07/13/20 Range/Units 10:01 15:15 15:15 WBC 7.1 (4.8-10.8) x10^3/uL RBC 3.84 L (4.20-5.40) 10^6/uL Hgb 11.4 L (12.0-16.0) g/dL Hct 33.6 L (37.0-47.0) % MCV 87.5 (81.0-99.0) fL MCH 29.7 (27.0-31.0) pg MCHC 33.9 (32.0-36.0) g/dL RDW 15.5 H (12.0-15.0) % Plt Count 208 (130-450) 10^3/uL MPV 10.9 H (7.9-10.8) fL Neut # (Auto) 5.5 (1.5-6.6) 10^3/uL Lymph # (Auto) 1.0 L (1.5-3.5) 10^3/uL [place] # (Auto) 0.5 (0.0-1.0) 10^3/uL Eos # (Auto) 0.0 (0.0-0.7) 10^3/uL Baso # (Auto) 0.0 (0.0-0.1) 10^3/uL Absolute Nucleated RBC 0.00 x10^3/uL Nucleated RBC % 0.0 /100WBC POC Whole Bld Glucose 87 (70 - 100) mg/dL Blood Type O POSITIVE Antibody Screen NEGATIVE
[2020-07-14] MEDS ORDERED: DEXTROSE 5%-LACTATED RINGERS 1,000 ML IV SCH (14:00)
[2020-07-14] MEDS ORDERED: HYDROCORTISONE 1% CREAM 28 GM TUBE PR PRN (14:34)
[2020-07-14] MEDS ORDERED: ONDANSETRON ODT 4 MG TABLET TL PRN (14:34)
[2020-07-14] MEDS ORDERED: WITCH HAZEL/GLYCERIN 1 PAD TOP PRN (14:34)
--- NOTE | 2020-07-14 14:37 | DELIVERY NOTE ---
Delivery Note - Labor Labor: positive: Induced by oxytocin - Delivery Method Delivery Method: positive: Spontaneous vaginal delivery - Cervical Ripening Method Cervical Ripening Method: positive: Misoprostil - Presentation Presentation: positive: Vertex - Nuchal Cord Nuchal Cord: positive: Present, Reduced - Amniotic Fluid Description Amniotic Fluid Description: positive: Clear - Episiotomy Type Episiotomy Type: positive: None - Laceration Laceration: positive: None - Delivery Outcome Delivery Outcome: positive: Livebirth - [place]: positive: Placed in direct skin contact with mother, Bulb syringe, Stimulated, Warmed, Ary used [place] sex: positive: Female : Apgars 8/9 - Cord Cord: positive: 3 vessels - Placenta Placenta: positive: Intact, Spontaneous - Estimated Blood Loss Estimated Blood Loss (in cc): 150 - Post Delivery Events Post Delivery Events: positive: No post delivery events - Delivery Comments (Free Text/Narrative) Delivery Comments (Free Text/Narrative): IOL at 39w for A2GDM, received an epidural, GBS neg, uncomplicated labor and delivery.
[2020-07-14] MEDS: IBUPROFEN 600 MG TABLET PO SCH (15:05)
[2020-07-14] MEDS ORDERED: DOCUSATE SODIUM 100 MG CAPSULE PO SCH (21:00)
[2020-07-15] MEDS: IBUPROFEN 600 MG TABLET PO SCH ×3 (01:33→15:25)
--- NOTE | 2020-07-15 08:46 | Discharge Plan ---
Discharge Plan Problem Reviewed?: Yes Disposition: Home, Self Care Condition: Good Prescriptions: Acetaminophen [Acetaminophen Extra Strength] 1,000 mg PO Q6H PRN #45 tab PRN Reason: Pain Docusate Sodium 100Mg Capsule [Colace 100Mg Capsule] 100 mg PO BID PRN #30 cap PRN Reason: to soften stool Ibuprofen [Motrin] 600 mg PO Q6H PRN #30 tab PRN Reason: Pain Diet: Regular Shower Restrictions: No Driving Restrictions: No No Smoking: If you smoke, Please STOP! Call for help. Follow-up with: Bijan Shaffer MD [Provider Admit Priv/Credential] - 2 Weeks
--- NOTE | 2020-07-15 09:14 | DISCHARGE SUMMARY ---
Physician: Ada Montoya MD DATE OF ADMISSION: 07/14/2020 DATE OF DISCHARGE: 07/15/2020 ADMISSION DIAGNOSES: 1. Type A2 gestational diabetes. 2. Intrauterine at 39 weeks. DISCHARGE DIAGNOSIS: Status post spontaneous vaginal delivery at term. PROCEDURES: On 07/14/2020, spontaneous vaginal delivery of a liveborn female. Apgars were 8 at 1 mi nute and 9 at 5 minutes, and estimated blood loss was 150 mL. There were no lacerations. HOSPITAL COURSE: The patient was admitted for induction because of her A2 diabetes and was induced w ith misoprostol followed by Pitocin. She received an epidural for pain control. Her labor and deliv alfredo were unremarkable. By day 1, she was requesting discharge home. She was eating, ambulating, and urinating we ll. She was well with a good latch although she was planning to pump and bottle feed a t home. She did not have any heavy bleeding, mood changes or problems with pain. PHYSICAL EXAM: VITAL SIGNS: She was afebrile with normal vital signs. GENERAL: Alert and pleasant, in no apparent distress. ABDOMEN: Soft, nontender, nondistended. Fundus firm, nontender, and 1 cm below the umbilicus. DISCHARGE INSTRUCTIONS: Routine instructions given. DISCHARGE MEDICATIONS: Add ibuprofen p.r.n. pain, Tylenol p.r.n. pain, Colace p.r.n. to soften stool . Patient is already on vitamins and iron for her anemia. FOLLOWUP: Follow up in [address] Shaffer for a mood check. Patient has a history of chronic dep ression and anxiety and is feeling well on her usual dose of Zoloft 150 mg daily. DISPOSITION: Home. CONDITION: Good. TD: 07/15/2020 08:51
[2020-07-15 15:58] VITALS: BP 125/68
== END 2020-07-15 16:05 | disposition home or self-care (01) | DRG 807 ==
LOC: WFO 14:36 → FBP 14:38 → WFO 16:29 → FBP 16:30 → OBSVTOIN 07-14 00:45 → OBS 07-14 23:29 → FBP 07-14 23:29
PROVIDERS: ADMIT Obstetrics & Gynecology; ATTEND Obstetrics & Gynecology
PROC: 10E0XZZ Delivery of Products of Conception, External Approach (ICD-10-PCS; principal; 2020-07-14)
PROC: 3E033VJ Introduction of Other Hormone into Peripheral Vein, Percutaneous Approach (ICD-10-PCS; 2020-07-14)
PROC: 10907ZC Drainage of Amniotic Fluid, Therapeutic from Products of Conception, Via Natural or Artificial Opening (ICD-10-PCS; 2020-07-14)
DX: O24.425 Gestational diabetes mellitus in childbirth, controlled by oral hypoglycemic drugs (principal); Z37.0 Single live birth; O69.81X0 Labor and delivery complicated by cord around neck, without compression, not applicable or unspecified; O99.344 Other mental disorders complicating childbirth; F41.9 Anxiety disorder, unspecified; F32.9 Major depressive disorder, single episode, unspecified; O99.62 Diseases of the digestive system complicating childbirth; K21.9 Gastro-esophageal reflux disease without esophagitis; Z3A.39 39 weeks gestation of pregnancy; Z20.822 Contact with and (suspected) exposure to COVID-19; Z79.899 Other long term (current) drug therapy
CPT/HCPCS: 36415; 85018; 85025; 86850; 86900; 86901; 87635; 96365; A9270; J1200; J2765; J7120